=== PATIENT | male | born 1945 | race Caucasian/White ===

== ENCOUNTER 2017-01-11 09:31 | Outpatient (CLI) | payer MEDICARE | END 2017-01-11 23:59 | DX: E78.2 Mixed hyperlipidemia (principal) ==

== ENCOUNTER 2017-08-02 14:35 | Outpatient (CLI) | payer MEDICARE, OTHER | END 2017-08-02 14:36 | disposition home or self-care (01) | LOC: LAB.R 14:35 | PROVIDERS: ATTEND Internal Medicine | DX: E78.2 Mixed hyperlipidemia (principal) ==